=== PATIENT | female | born 1985 | race Two or more races ===

== ENCOUNTER 2025-05-17 11:05 | Emergency (ER) | payer BC ==
[~2025-05-17] VITALS: Ht 162.6 cm; Wt 80.7 kg
[2025-05-17] MEDS ORDERED: KETOROLAC TROMETHAMINE 30 MG VIAL IM STA (12:18)
[2025-05-17] MEDS ORDERED: CEFTRIAXONE SODIUM 500 MG VIAL IM STA (12:18)
[2025-05-17] MEDS ORDERED: AMOXICILLIN500 M1 PO (12:26)
[2025-05-17] MEDS ORDERED: KETOROLAC TROMETHAMINE 30 MG VIAL ONE (14:08)
[2025-05-17] MEDS ORDERED: LIDOCAINE HCL 1% 10ML VIAL ONE (14:15)
== END 2025-05-17 14:57 | disposition home or self-care (01) ==
LOC: ER 11:06
DX: R22.0 Localized swelling, mass and lump, head (principal); K08.89 Other specified disorders of teeth and supporting structures